=== PATIENT | female | born 1975 | race Caucasian/White ===

== ENCOUNTER 2020-10-31 10:02 | Emergency (ER) | payer BC, SELFPAY ==
--- NOTE | ~2020-10-31 | XR_ITS ---
EXAMINATION: XR foot RT min 3V EXAM DATE: 10/31/2020 10:41 INDICATION: Twisted rt foot, laterally pain. Initial encounter. TECHNIQUE: Right foot dorsoplantar, lateral and oblique projections obtained and reviewed. Compariso n is made to prior examination from 07/18/2013. FINDINGS: There is a acute closed posttraumatic fracture at the base of the right 5th metatarsal bon e, one fracture line extending toward the Lisfranc joint and the other toward the base of the 4th met atarsal, Hartmann type fracture (these sometimes require surgical fixation). Follow-up is indicated to ensure union. There is overlying soft tissue swelling. Small size inferior calcaneal spur. IMPRESSION: Right Hartmann fracture. Reviewed, dictated and finalized at location B. [employer] IMPRESSION: Right Hartmann fracture.
--- NOTE | 2020-10-31 10:14 | ED.LOWEXIN ---
HPI - Extremity Injury (Lower) General Chief Complaint: Extremity Injury, Lower Stated Complaint: fell right foot Time Seen by Provider: 10/31/20 10:12 Source: patient and RN notes reviewed Mode of arrival: ambulatory Limitations: no limitations History of Present Illness HPI Narrative: This is a 45-year-old white female who presented to urgent care with complaints of right foot pain. According to patient she was walking her dog this morning and her right foot and ankle inverted causing her to fall . Afterwards she experienced right foot pain and a abrasion to her left knee. Patient did take ibuprofen and iced her right foot while at home with no relief. She is here today and willl received a x-ray to f/u fx. The patient denies SOB, CP, palpitation, extremity numbness, lightheadedness, dizziness, constipation, diarrhea, chills, or fever. X-ray indicates closed fracture of the fourth and fifth metatarsal Hartmann type. Called Dr. Ponce business operations specialist orthopedic surgeon suggested patient be discharged with postop shoe, soft wrap with Adrian wrap and follow-up in office. Related Data Home Medications Medication Instructions Recorded Confirmed escitalopram oxalate 10 mg PO DAILY 10/31/20 10/31/20 Allergies Allergy/AdvReac Type Severity Reaction Status Date / Time No Known Allergies Allergy Verified 10/31/20 10:07 Review of Systems Review of Systems: All systems reviewed & are unremarkable except as noted in HPI and below (10 point system review) [facility] Family History Family History Father Family history of obesity Hypertension Family history of diabetes mellitus in first degree relative Mother Patient's mother is in good health Sibling Patient's brother is in good health Patient's sister is Other Diabetes mellitus Family history of arthritis Family history of cardiovascular disease Social History Social History Smoking status: Never smoker Alcohol intake: current Gender identity (if verbalized by the patient): Female Exam Narrative: Exam Narrative: GENERAL: This is a well-nourished, well-developed patient, in no apparent distress. HEAD: normocephalic, atraumatic. EYES: PERRL. Sclera clear/white. Vision is grossly intact. EARS: External ears normal, auditory canals clear and without drainage, TMs normal without perforation. Hearing grossly intact. NOSE: External nose normal with no obvious nasal discharge, nares without redness, no rhinorrhea. THROAT: Mucous membranes moist, posterior pharynx clear. NECK: Neck supple, non-tender without lymphadenopathy, masses or thyromegaly. CARDIOVASCULAR: Regular rate and rhythm without murmurs, gallops, or rubs. RESPIRATORY: Clear to auscultation. Breath sounds equal bilaterally. No wheezes, rales, or rhonchi. GASTROINTESTINAL: Abdomen soft, non-tender, nondistended. Bowel sounds are active. No hepato-splenomegaly, or palpable masses. No guarding. SKIN: warm, intact with no suspicious lesions or rash, good texture and turgor. NEURO: awake, alert, and oriented to person, place and time. There were no obvious focal neurologic abnormalities. Steady gait EXTREMITIES: Limited range of motion to the right foot due to tenderness and pain. Pulses are palpable. Neurovascular compromise is not noted. Strength equal bilateral. Grade 1 pain BACK: Nontender without deformity or crepitance. No flank tenderness. Course Course Emergency Course: X-ray of the right foot completed-There is a acute closed posttraumatic fracture at the base of the right 5th metatarsal bone, one fracture line extending toward the Lisfranc joint and the other toward the base of the 4th metatarsal, Hartmann type fracture (these sometimes require surgical fixation). Follow-up is indicated to ensure union. There is overlying soft tissue swelling. Small size inferior calcaneal spur. Vit
[2020-10-31 10:31] VITALS: BP 149/93; PULSE 84; RESP 16; TEMP 36.4; O2SAT 100
== END 2020-10-31 11:15 | disposition home or self-care (01) ==
PROVIDERS: Emergency Provider Nurse Practitioner; PCP Internal Medicine
DX: S92.351A Displaced fracture of fifth metatarsal bone, right foot, initial encounter for closed fracture (principal); X50.9XXA Other and unspecified overexertion or strenuous movements or postures, initial encounter; Y93.K1 Activity, walking an animal
CPT/HCPCS: 73630; 99214; G0463

== ENCOUNTER 2024-03-10 07:42 | Outpatient (CLI) | payer BC, SELFPAY ==
--- NOTE | ~2024-03-10 | MM_ITS ---
EXAMINATION: MM screening miguel BI w mauricio HISTORY: Screening TECHNIQUE: Craniocaudal and mediolateral oblique 3-D tomosynthesis images were obtained and synthetic 2-D images were generated. CAD analysis was submitted and interpreted. COMPARISON: Comparison to multiple prior studies sequentially, with oldest reviewed study dated 11/18. BREAST PARENCHYMAL COMPOSITION: Not dense: There are scattered areas of fibroglandular density. FINDINGS: The right breast is stable without evidence for malignancy. There are developing asymmetrie s in the lower outer quadrant of the left breast, middle third. IMPRESSION: 1. Developing left breast asymmetries. 2. Additional mammographic views and possible breast ultrasound are recommended. BI-RADS Category 0: Incomplete: Needs additional imaging evaluation. Reviewed, dictated and finalized at location B. IMPRESSION: 1. Developing left breast asymmetries. 2. Additional mammographic views and possible breast ultrasound are recommended . BI-RADS Category 0: Incomplete: Needs additional imaging evaluation.
== END 2024-03-10 07:43 | disposition home or self-care (01) ==
PROVIDERS: Visit Provider Nurse Practitioner Women's Health
DX: Z12.31 Encounter for screening mammogram for malignant neoplasm of breast (principal); R92.8 Other abnormal and inconclusive findings on diagnostic imaging of breast
CPT/HCPCS: 77063; 77067

== ENCOUNTER 2024-03-30 12:51 | Outpatient (CLI) | payer BC, SELFPAY ==
--- NOTE | ~2024-03-30 | MM_ITS ---
EXAMINATION: MM diagnostic miguel LT w mauricio HISTORY: Left breast asymmetry TECHNIQUE: Additional 3-D tomosynthesis spot compression images of the left breast were performed and synthetic 2-D images were generated. CAD analysis was submitted and interpreted. COMPARISON: 03/10/2024, 08/23/2012 BREAST PARENCHYMAL COMPOSITION:Not Dense. The breasts are almost entirely fatty FINDINGS: The focal asymmetry in the outer left breast demonstrates relative effacement with spot com pression. No definite mass lesion or distortion seen. No suspicious microcalcification. IMPRESSION: No mammographic evidence for malignancy. BI-RADS Category 1: Negative Reviewed, dictated and finalized at location .
== END 2024-03-30 12:52 | disposition home or self-care (01) ==
LOC: ANHIMG 12:53
PROVIDERS: Visit Provider Obstetrics & Gynecology Gynecology
DX: R92.8 Other abnormal and inconclusive findings on diagnostic imaging of breast (principal)
CPT/HCPCS: 77061; 77065; G0279